=== PATIENT | male | born 1995 | race Caucasian/White ===

== ENCOUNTER 2018-05-20 23:27 | Emergency (ER) | payer OTHER ==
[~2018-05-20] VITALS: Ht 182.9 cm; Wt 86.5 kg
[2018-05-20 23:30] VITALS: BP 128/85; PULSE 88; RESP 20; Ht 182.9 cm; Wt 86.5 kg
[2018-05-21] MEDS ORDERED: IPRATROPIUM (NEB) 0.5 MG/2.5 ML AMP NEB STA (00:23)
[2018-05-21] MEDS ORDERED: SOD CHLORIDE 0.9% 500 ML IV STA (00:23)
[2018-05-21] MEDS ORDERED: ALBUTEROL 0.083% (NEB) 2.5 MG/3 ML AMP NEB STA (00:23)
[2018-05-21] MEDS ORDERED: METHYLPREDNISOLONE 125 MG INJ IV STA (00:23)
[2018-05-21] MEDS ORDERED: MAGNESIUM SULFATE 2 GM/50 ML 50 ML IVPB STA (00:23)
--- NOTE | 2018-05-21 00:30 | ERD ---
ER Documentation Chief Complaint Chief Complaint ASTHMA EXACERBATION, SOB HPI This is a 23-year-old male with a history of asthma who presents ED with acute asthma exacerbation. Patient states that 20 minutes prior to arrival in ED he started having a asthma attack. Patient admits to wheezing, shortness of breath and cough. Denies history of being intubated. Was hospitalized as a child for an asthma attack. Denies fever, chills, nausea, vomiting, diarrhea, constipation, abdominal pain and all other symptoms. No known drug allergies. ran out of inhaler ROS All systems reviewed and are negative except as per history of present illness. Allergies Allergies: Coded Allergies: No Known Allergy (Unverified , 05/20/18) PMhx/Soc History of Surgery: No Anesthesia Reaction: No Hx Neurological Disorder: No Hx Respiratory Disorders: Yes (ASTHMA) Hx Cardiac Disorders: No Hx Psychiatric Problems: No Hx Miscellaneous Medical Probl: No Hx Alcohol Use: No Hx Substance Use: No Hx Tobacco Use: No Smoking Status: Never smoker Physical Exam Vitals Vital Signs Date Temp Pulse Resp B/P (MAP) Pulse Ox O2 O2 Flow FiO2 Time Delivery Rate 05/21/18 82 22 98 21 00:44 05/20/18 97.8 88 20 128/85 94 23:30 (99) Physical Exam Physical Exam Vitals signs: Reviewed by me. General: Well developed, well nourished, in no acute distress. Patient is awake and alert. Head: Normocephalic, atraumatic. Eyes: Normal conjunctiva, Pupils PERRLA, EOM intact grossly ENT: Pharynx is clear, Moist mucous membranes, external ears, nose and mouth normal Neck: Supple, no masses, lymphadenopathy or JVD Respiratory: Decreased breath sounds in all lung zaidi, wheezing auscultated, no labored breathing, no retractions Cardiovascular: RRR, no murmurs, rubs, or gallops Neurologic: Alert and oriented, moving all extremities, normal speech, no focal weakness, no cerebellar signs. Normal mentation Skin: warm and dry, No rash Psych: Normal mood Results 24 hrs Current Medications Medications Dose Sig/Tania Start Time Status Last (Trade) Ordered Route PRN Stop Time Admin Dose Reason Admin Sodium 500 ml @ Q1H STAT 05/21/18 05/21/18 Chloride 500 mls/hr IV 00:23 00:33 05/21/18 01:22 Albuterol 5 mg ONCE STAT 05/21/18 DC 05/21/18 (Proventil NEB 00:23 00:43 0.083% (Neb)) 05/21/18 00:25 Ipratropium 0.5 mg ONCE STAT 05/21/18 DC 05/21/18 Wagner NEB 00:23 00:43 (Atrovent 05/21/18 00:25 0.02% (Neb)) 125 mg ONCE STAT 05/21/18 DC 05/21/18 Methylprednis IV 00:23 00:33 olone Sodium 05/21/18 00:25 Succinate (Solu-Medrol) Magnesium 50 ml @ 25 ONCE STAT 05/21/18 05/21/18 Sulfate mls/hr IVPB 00:23 00:33 05/21/18 02:22 Procedures/MDM EKG, MONITORS, & DIAGNOSTIC IMAGING: [place] [id number] Radiology Main Line: [phone] DIAGNOSTIC IMAGING REPORT Patient: LYNSEY DOMINGUEZ : 1995 Age: 23 Sex: M MR #: [id number] DOS: 05/21/18 0023 Ordering MD: LAYLA PIZANO PA-C Location: [facility] Room/Bed: PROCEDURE: Chest. CLINICAL INDICATION: Asthma exacerbation. TECHNIQUE: Single frontal view of the chest was obtained. COMPARISON: None. FINDINGS: The cardiac silhouette is within normal limits. The aortic arch is unremarkable. There is no focal consolidation, vascular congestion or pleural effusion. There is no pneumothorax. IMPRESSION: No evidence for active cardiopulmonary disease. .Morro Morgan MD, MD Date Time Electronically viewed and signed by .Morro Morgan MD, MD on 05/21/2018 01:18 .T/ CC: LAYLA PIZANO PA-C [phone] ER COURSE: The patient was given IV Solu-Medrol and magnesium and breathing treatment The medication was well tolerated and the patient reports improvement in symptoms. The patient was stable throughout ED course. I kept the patient and/or family informed of laboratory and diagnostic imaging results throughout the emergency room course. The patient was promptly evaluated and a treatment plan was devised based on H&P and other data. This plan was discussed with the patient who agreed and had no further questions or concerns prior to discharge. 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 Physical examination was remarkable for some mild distress with some posterior wheezing heard. No retractions on physical examination. After the patient was given albuterol/ipratropium breathing treatment and IV Solu-Medrol and magnesium. Pt initial oxygen saturation at arrival in ED was 94, and after breathing treatment oxygen saturation has increased to 98. Chest xray is also unremarkable for acute pulmonary disease. History and physical examination other data not consistent with emergent processes including status asthmaticus, pneumonia, pneumothorax, pleural effusion and other emergencies. There are no emergent life-threatening pathologies at time of discharge. Vitals are stable and patient is appropriate for outpatient management. Advised patient that he needs to follow-up with his primary care in the next 48 hours. Advised to return to ED with any worsening symptoms. DISPOSITION PLAN: We discussed follow up with the patient's primary care doctor within 24 to 48 hours. Patient counseled regarding my diagnostic impression and care plan. Prior to discharge all questions answered. Pt agrees with treatment plan and understands strict return precautions. Precautionary instructions provided including instructions to return to the ER if not improving or for any worsening or changing symptoms or concerns. SPECIALIST FOLLOW UP RECOMMENDED: None Patient has been advised to follow up with primary care in 1-2 days. Disclaimer: Inadvertent spelling and grammatical errors are likely due to E HR/dictation software use and do not reflect on the overall quality of patient care. Also, please note that the electronic time recorded on this note does not necessarily reflect the actual time of the patient encounter. Departure Diagnosis: Primary Impression: Asthma exacerbation Asthma severity: unspecified severity Asthma persistence: unspecified Qualified Codes: J45.901 - Unspecified asthma with (acute) exacerbation Condition: Stable Patient Instructions: Asthma, Acute (Adult) Referrals: [facility] Additional Instructions: Patient advised to return to the ED immediately for new or worsening symptoms. Patient advised to follow up with primary care provider in the next 24-48 hours. Patient verbalized understanding and agrees with treatment plan and course of action. If patient has no primary care they may follow up with one of the community clinics listed on the following page or one of the options listed below [facility] [address] [place] [address] or [facility] [address] [place] [address] or [facility] [address] [place] [address] LAYLA PIZANO PA-C May 21, 2018 00:30
[2018-05-21] MEDS ORDERED: ALBU8.5H8 INH (01:22)
[2018-05-21] MEDS ORDERED: PRED20TA PO (01:22)
[2018-05-21] MEDS ORDERED: FLUT12HF2 IH (01:22)
== END 2018-05-21 02:04 | disposition home or self-care (01) ==
LOC: FTE 23:27
DX: J45.901 Unspecified asthma with (acute) exacerbation (principal)
CPT/HCPCS: 71045; 94664; 96365; 96375; J2930; J3475; J7040; Z7502; Z7610